=== PATIENT | female | born 1960 | race Caucasian/White ===

== ENCOUNTER 2025-05-12 09:51 | Day surgery (SDC) | payer MEDICAID ==
[2025-05-12] MEDS ORDERED: propofoL 500 MG/50 ML 50 ML ONE (10:01)
[2025-05-12] MEDS: Lactated Ringers 1,000 ML IV SCH (10:23)
[2025-05-12] MEDS ORDERED: Esmolol 100 MG/10 ML SDV ONE (10:40)
[2025-05-12] MEDS ORDERED: Lactated Ringers 1,000 ML IV SCH (11:15)
== END 2025-05-12 11:50 | disposition home or self-care (01) ==
LOC: MW.SDS 09:51
PROVIDERS: ATTEND Surgery
DX: D12.8 Benign neoplasm of rectum (principal); K57.30 Diverticulosis of large intestine without perforation or abscess without bleeding; I10 Essential (primary) hypertension; E03.9 Hypothyroidism, unspecified; Z88.5 Allergy status to narcotic agent; Z88.0 Allergy status to penicillin; Z79.890 Hormone replacement therapy; Z79.899 Other long term (current) drug therapy
CPT/HCPCS: 45385; J1805; J2704; J7120; 00811